=== PATIENT | male | born 1960 | race Two or more races ===

== ENCOUNTER → 2022-04-20 | Outpatient (CLI) | payer MEDICAID ==
[2022-04-20 09:52] LABS: Basophils # (auto) 0 10 ^3/uL (0-0.2); Basophils % (auto) 0.2 % (0.0-2.0); Eosinophils # (auto) 0.2 10 ^3/uL (0-0.8); Eosinophils % (auto) 2.5 % (0.0-7.0); Hematocrit 49.5 % (41.0-53.0); Hemoglobin 16.2 g/dL (13.5-17.5); Lymphocytes # (auto) 2.9 10 ^3/uL (0.4-5.4); Lymphocytes % (auto) 33.9 % (10.0-50.0); Mean Corpuscular Hemoglobin 28.3 pg (28.0-32.0); Mean Corpuscular Hgb Conc. 32.7 g/dL (32.0-36.0); Mean Corpuscular Volume 86.5 fL (80.0-100.0); Monocytes # (auto) 0.6 10 ^3/uL (0-1.3); Monocytes % (auto) 7.6 % (0.0-12.0); Neutrophils # (auto) 4.7 10 ^3/uL (1.6-8.6); Neutrophils % (auto) 55.8 % (37.0-80.0); Nucleated Red Blood Cells % 0.1 %; Red Blood Cells 5.72 10^6/uL (4.5-5.90); Red Cell Distribution Width 13.4 % (11.8-14.3); White Blood Cell 8.4 10^3/uL (4.4-10.8)
[2022-04-20 10:10] LABS: Urine Bacteria NONE SEEN /hpf (None Seen); Urine Blood Negative /uL (Negative); Urine Mucus FEW (None Seen); Urine Specific Gravity 1.018 (1.001-1.035); Urine WBC 1 /hpf (0 - 3)
[2022-04-20 10:44] LABS: Potassium 4.6 mmol/L (3.5-5.1)
[2022-04-20 10:50] LABS: Albumin 3.9 g/dL (3.4-5.0); BUN/Creatinine Ratio 12.2; Bilirubin, Total 0.7 mg/dL (0.2-1.0); Calcium 9.4 mg/dL (8.5-10.1); Total Protein 7.7 g/dL (6.4-8.2)
== END | disposition home or self-care (01) ==
LOC: LAB 09:17
PROVIDERS: ATTEND Internal Medicine
DX: Z00.00 Encounter for general adult medical examination without abnormal findings (principal); Z12.11 Encounter for screening for malignant neoplasm of colon; E11.9 Type 2 diabetes mellitus without complications; I10 Essential (primary) hypertension
CPT/HCPCS: 36415; 80053; 80061; 81001; 82043; 82550; 83036; 84153; 85025; 85652

== ENCOUNTER → 2022-07-27 | Outpatient (CLI) | payer MEDICAID ==
[2022-07-27 13:36] LABS: Alanine Aminotransferase 23 U/L (16-61); Albumin 3.8 g/dL (3.4-5.0); Bilirubin, Direct < 0.1 mg/dL (0-0.2)
[2022-07-27 13:39] LABS: Alkaline Phosphatase 98 U/L (45-117); Aspartate Aminotransferase 14 U/L (15-37); Bilirubin, Total 0.5 mg/dL (0.2-1.0); Total Protein 8.1 g/dL (6.4-8.2)
== END | disposition home or self-care (01) ==
LOC: LAB 12:36
PROVIDERS: ATTEND Internal Medicine
DX: E78.5 Hyperlipidemia, unspecified (principal)
CPT/HCPCS: 36415; 80076

== ENCOUNTER → 2022-12-08 | Outpatient (CLI) | payer MEDICAID ==
[2022-12-08 11:31] LABS: Albumin 4.1 g/dL (3.4-5.0); Potassium 4.7 mmol/L (3.5-5.1)
[2022-12-08 11:38] LABS: BUN/Creatinine Ratio 16.3 (10.0-20.0); Calcium 9.7 mg/dL (8.5-10.1); Phosphorus 4.2 mg/dL (2.5-4.90)
== END | disposition home or self-care (01) ==
LOC: LAB 10:34
PROVIDERS: ATTEND Internal Medicine
DX: E11.9 Type 2 diabetes mellitus without complications (principal); I10 Essential (primary) hypertension; E78.5 Hyperlipidemia, unspecified
CPT/HCPCS: 36415; 80061; 80069; 83036

== ENCOUNTER → 2022-12-28 | Outpatient (CLI) | payer MEDICAID ==
[2022-12-28 13:22] LABS: Albumin 3.8 g/dL (3.4-5.0); Bilirubin, Direct 0.2 mg/dL (0-0.2)
[2022-12-28 13:25] LABS: Bilirubin, Total 0.7 mg/dL (0.2-1.0); Total Protein 7.7 g/dL (6.4-8.2)
== END | disposition home or self-care (01) ==
LOC: LAB 09:44
PROVIDERS: ATTEND Internal Medicine
DX: E78.5 Hyperlipidemia, unspecified (principal)
CPT/HCPCS: 36415; 80076

== ENCOUNTER 2023-03-05 12:38 | Inpatient (IN) | payer OTHER, MEDICAID ==
[~2023-03-05] VITALS: Ht 162.6 cm; Wt 101.0 kg
[2023-03-05 13:06] LABS: Basophils # (auto) 0 10 ^3/uL (0-0.2); Basophils % (auto) 0.3 % (0.0-2.0); Eosinophils # (auto) 0.1 10 ^3/uL (0-0.8); Eosinophils % (auto) 0.4 % (0.0-7.0); Hemoglobin 17.1 g/dL (13.5-17.5); Lymphocytes # (auto) 1.6 10 ^3/uL (0.4-5.4); Lymphocytes % (auto) 12.3 % (10.0-50.0); Mean Corpuscular Hemoglobin 28.9 pg (28.0-32.0); Mean Corpuscular Hgb Conc. 32.9 g/dL (32.0-36.0); Mean Corpuscular Volume 87.9 fL (80.0-100.0); Monocytes # (auto) 0.9 10 ^3/uL (0-1.3); Monocytes % (auto) 6.7 % (0.0-12.0); Neutrophils # (auto) 10.3 10 ^3/uL (1.6-8.6); Neutrophils % (auto) 80.3 % (37.0-80.0); Nucleated Red Blood Cells % 0.1 %; Red Blood Cells 5.92 10^6/uL (4.5-5.90); White Blood Cell 12.9 10^3/uL (4.4-10.8)
[2023-03-05 13:30] LABS: Albumin 4.1 g/dL (3.4-5.0); Calcium 9.7 mg/dL (8.5-10.1)
[2023-03-05 13:33] LABS: BUN/Creatinine Ratio 8.4 (10.0-20.0); Bilirubin, Total 0.7 mg/dL (0.2-1.0); Total Protein 7.8 g/dL (6.4-8.2)
[2023-03-05 14:26] LABS: Urine Bacteria FEW /hpf (None Seen); Urine Blood 2+ /uL (Negative); Urine Hyaline Cast FEW /lpf (0 - 2); Urine Mucus FEW (None Seen); Urine Specific Gravity 1.023 (1.001-1.035); Urine WBC 10 /hpf (0 - 3)
[2023-03-05] MEDS ORDERED: MORPHINE SULFATE INJ 2 MG/ml SYRG IV PRN (18:30)
[2023-03-05] MEDS ORDERED: IPRATROPIUM BROM 0.5 MG/2.5ML INH SOL NEB PRN (18:30)
[2023-03-05] MEDS ORDERED: ACETAMINOPHEN 325 MG TAB PO PRN (18:30)
[2023-03-05] MEDS ORDERED: DEXTROSE (50%) 50ML SYRG IV PRN (18:30)
[2023-03-05] MEDS ORDERED: ALBUTEROL SULF 2.5 MG/0.5ML(0.5%) NEB SOLN NEB PRN (18:30)
[2023-03-05] MEDS ORDERED: NITROGLYCERIN 0.4 MG SL TAB SL PRN (18:30)
[2023-03-05] MEDS: cefTRIAXone 1GM/50ML D5W 50 ML IV SCH (19:36)
[2023-03-05] MEDS: SODIUM CHLORIDE 0.9% 1,000 ML IV SCH (19:40)
[2023-03-05 21:23] VITALS: BP 100/73; PULSE 83; RESP 20; O2SAT 94
[2023-03-05] MEDS ORDERED: InsuLIN REG 1unit/0.01ml Soln (100units/ml) SC SCH (22:00)
[2023-03-05] MEDS ORDERED: ATORVASTATIN 20 MG TAB PO SCH (22:00)
[2023-03-05] MEDS: ACCU-CHEK COMFORT CURVE STRIP VI SCH (22:29)
[2023-03-06] MEDS: SODIUM CHLORIDE 0.9% 1,000 ML IV SCH ×3 (01:10→14:30)
[2023-03-06 05:04] LABS: Basophils # (auto) 0 10 ^3/uL (0-0.2); Basophils % (auto) 0.3 % (0.0-2.0); Eosinophils # (auto) 0.2 10 ^3/uL (0-0.8); Eosinophils % (auto) 1.7 % (0.0-7.0); Hematocrit 50.5 % (41.0-53.0); Hemoglobin 17.2 g/dL (13.5-17.5); Lymphocytes # (auto) 2.4 10 ^3/uL (0.4-5.4); Lymphocytes % (auto) 22.2 % (10.0-50.0); Mean Corpuscular Hemoglobin 29.7 pg (28.0-32.0); Mean Corpuscular Volume 87.3 fL (80.0-100.0); Monocytes # (auto) 0.8 10 ^3/uL (0-1.3); Monocytes % (auto) 7.8 % (0.0-12.0); Neutrophils # (auto) 7.2 10 ^3/uL (1.6-8.6); Nucleated Red Blood Cells % 0.1 %; Red Blood Cells 5.79 10^6/uL (4.5-5.90); Red Cell Distribution Width 14.2 % (11.8-14.3); White Blood Cell 10.6 10^3/uL (4.4-10.8)
[2023-03-06 05:23] LABS: Albumin 3.9 g/dL (3.4-5.0); Calcium 9.7 mg/dL (8.5-10.1); Potassium 3.8 mmol/L (3.5-5.1)
[2023-03-06 05:30] LABS: BUN/Creatinine Ratio 19.6 (10.0-20.0); Bilirubin, Total 0.6 mg/dL (0.2-1.0)
[2023-03-06] MEDS: InsuLIN REG 1unit/0.01ml Soln (100units/ml) SC SCH ×3 (08:11→16:57)
[2023-03-06] MEDS: ACCU-CHEK COMFORT CURVE STRIP VI SCH ×3 (08:11→16:57)
[2023-03-06 08:35] VITALS: O2SAT 98
[2023-03-06] MEDS: cefTRIAXone 1GM/50ML D5W 50 ML IV SCH (09:08)
[2023-03-06 09:45] VITALS: PULSE 80; RESP 16; O2SAT 98
[2023-03-06] MEDS ORDERED: ASPirin-EC 81 mg tab PO SCH (10:00)
[2023-03-06] MEDS ORDERED: PANTOPRAZOLE 40 MG/10 ML VIAL INJ IV SCH (10:00)
[2023-03-06 12:00] VITALS: TEMP 98.1
[2023-03-06 17:01] VITALS: BP 113/72; PULSE 74; RESP 19; O2SAT 93
== END 2023-03-06 18:01 | disposition home or self-care (01) | DRG 311 ==
LOC: ER 12:38 → TELE 18:28
PROVIDERS: ADMIT Nurse Practitioner Family; ATTEND Student in an Organized Health Care Education/Training Program
DX: I24.9 Acute ischemic heart disease, unspecified (principal); N17.0 Acute kidney failure with tubular necrosis; N30.00 Acute cystitis without hematuria; E11.65 Type 2 diabetes mellitus with hyperglycemia; I10 Essential (primary) hypertension; E78.5 Hyperlipidemia, unspecified; E66.01 Morbid (severe) obesity due to excess calories; Z82.3 Family history of stroke; Z68.38 Body mass index [BMI] 38.0-38.9, adult
CPT/HCPCS: 36415; 71045; 71275; 80053; 80061; 81001; 82962; 83880; 84443; 84484; 85025; 85379; 87086; 93005; 93306; C9113; G0378; J0696; J1815

== ENCOUNTER → 2023-03-15 | Outpatient (CLI) | payer OTHER, MEDICAID ==
[2023-03-15 09:40] LABS: Urine Bacteria NONE SEEN /hpf (None Seen); Urine Blood Negative /uL (Negative); Urine Clarity Clear (Clear); Urine Color Colorless (Yellow); Urine Protein, UAD Negative (Negative); Urine Specific Gravity 1.028 (1.001-1.035); Urine Urobilinogen Normal (Negative); Urine WBC <1 /hpf (0 - 3); Urine pH 5.5 (5.0-8.0)
[2023-03-15 10:09] LABS: Potassium 4.5 mmol/L (3.5-5.1)
[2023-03-15 10:15] LABS: BUN/Creatinine Ratio 15.5 (10.0-20.0); Calcium 9.1 mg/dL (8.5-10.1)
== END | disposition home or self-care (01) ==
LOC: LAB 09:09
PROVIDERS: ATTEND Internal Medicine
DX: E11.9 Type 2 diabetes mellitus without complications (principal); N39.0 Urinary tract infection, site not specified
CPT/HCPCS: 36415; 80048; 81001; 87086

== ENCOUNTER → 2023-06-06 | Outpatient (CLI) | payer OTHER ==
[2023-06-06 10:37] LABS: Creatinine, Urine 81.35 mg/dL (30.0-125.0)
[2023-06-06 10:40] LABS: Alanine Aminotransferase 13 U/L (7-40); Alkaline Phosphatase 88 U/L (46-116); Anion Gap 7 (5-15); BUN/Creatinine Ratio 11.2 (10.0-20.0); Blood Urea Nitrogen 12 mg/dL (9-23); Calcium 9.7 mg/dL (8.5-10.1); Carbon Dioxide 30 mmol/L (20-30); Chloride 102 mmol/L (98-107); Glucose 170 mg/dL (74-106); Potassium 4.7 mmol/L (3.5-5.1); Sodium 139 mmol/L (136-145)
[2023-06-06 10:41] LABS: Albumin 4.8 g/dL (3.2-4.8); Aspartate Aminotransferase 10 U/L (13-40)
[2023-06-06 10:42] LABS: Bilirubin, Total 0.8 mg/dL (0.2-1.0); Phosphorus 4.4 mg/dL (2.4-5.1); Total Protein 7.8 g/dL (5.7-8.2)
== END | disposition home or self-care (01) ==
LOC: LAB 09:02
PROVIDERS: ATTEND Internal Medicine
DX: I12.9 Hypertensive chronic kidney disease with stage 1 through stage 4 chronic kidney disease, or unspecified chronic kidney disease (principal); E11.22 Type 2 diabetes mellitus with diabetic chronic kidney disease; N18.1 Chronic kidney disease, stage 1
CPT/HCPCS: 36415; 80053; 82043; 82570; 83036; 84100; 84153

== ENCOUNTER → 2023-06-20 | Outpatient (CLI) | payer OTHER, MEDICAID ==
[~2023-06-20] VITALS: Ht 177.8 cm; Wt 103.9 kg
[~2023-06-20] MED LIST: ADENOSINE 87 MG in GIVE UN-DILUTED 0 ML IV STA
== END | disposition home or self-care (01) ==
LOC: XYW 08:47
PROVIDERS: ATTEND Internal Medicine
DX: I12.9 Hypertensive chronic kidney disease with stage 1 through stage 4 chronic kidney disease, or unspecified chronic kidney disease (principal); E11.22 Type 2 diabetes mellitus with diabetic chronic kidney disease; N18.1 Chronic kidney disease, stage 1; R07.9 Chest pain, unspecified; Z87.891 Personal history of nicotine dependence
CPT/HCPCS: 78452; 93017; A9500; J0153

== ENCOUNTER 2023-07-27 07:26 | Emergency (ER) | payer OTHER ==
[~2023-07-27] VITALS: Ht 177.8 cm; Wt 107.8 kg
[2023-07-27 08:27] VITALS: BP 152/91; PULSE 70; RESP 16; TEMP 97.7; O2SAT 96
[2023-07-27] MEDS ORDERED: PROM1SOL4 PO (08:28)
[2023-07-27] MEDS ORDERED: LEVO500T91 PO (08:28)
== END 2023-07-27 08:34 | disposition home or self-care (01) ==
LOC: ER 07:26
DX: J20.9 Acute bronchitis, unspecified (principal); I10 Essential (primary) hypertension; E11.9 Type 2 diabetes mellitus without complications; E78.5 Hyperlipidemia, unspecified; Z98.890 Other specified postprocedural states
CPT/HCPCS: 71046

== ENCOUNTER → 2023-09-14 | Outpatient (CLI) | payer OTHER ==
[~2023-09-14] MED LIST changes: -ADENOSINE 87 MG in GIVE UN-DILUTED 0 ML IV STA; +LEVO500T91 PO; +PROM1SOL4 PO
[2023-09-14 10:07] LABS: CRP High Sensitivity 0.19 mg/dL (<1.0)
[2023-09-14 10:23] LABS: Erythrocyte Sedimentation Rate 7 mm/hr (0-20)
[2023-09-14 10:38] LABS: Uric Acid 6.2 mg/dL (3.7-9.2)
== END | disposition home or self-care (01) ==
LOC: LAB 09:03
PROVIDERS: ATTEND Internal Medicine
DX: E11.9 Type 2 diabetes mellitus without complications (principal)
CPT/HCPCS: 36415; 80061; 83036; 84550; 85652; 86141

== ENCOUNTER → 2024-01-12 | Outpatient (CLI) | payer OTHER ==
[2024-01-12 09:15] LABS: Triglycerides 131 mg/dL (< 150)
[2024-01-12 09:16] LABS: Cholesterol 127 mg/dL (< 200); LDL Cholesterol 73 mg/dL (< 100)
[2024-01-12 09:17] LABS: HDL Cholesterol 33 mg/dL (40-59)
== END | disposition home or self-care (01) ==
LOC: LAB 08:27
PROVIDERS: ATTEND Internal Medicine
DX: E11.9 Type 2 diabetes mellitus without complications (principal)
CPT/HCPCS: 36415; 80061; 83036

== ENCOUNTER → 2024-03-21 | Outpatient (CLI) | payer OTHER ==
[~2024-03-21] VITALS: Ht 177.8 cm; Wt 103.4 kg
[2024-03-21] MEDS: REGADENOSON 0.4 MG/5 ML SYRG IV ONE ×2 (09:46→09:47)
== END | disposition home or self-care (01) ==
LOC: XYW 08:23
PROVIDERS: ATTEND Internal Medicine
DX: I10 Essential (primary) hypertension (principal); E11.65 Type 2 diabetes mellitus with hyperglycemia
CPT/HCPCS: 78452; 93017; A9500; J2785

== ENCOUNTER → 2024-05-17 | Outpatient (CLI) | payer OTHER ==
[2024-05-17 10:49] LABS: Anion Gap 7 (5-15); Carbon Dioxide 29 mmol/L (20-31); Chloride 105 mmol/L (98-107); Potassium 4.5 mmol/L (3.5-5.1); Sodium 141 mmol/L (136-145)
[2024-05-17 10:50] LABS: Calcium 10.3 mg/dL (8.7-10.4)
[2024-05-17 10:55] LABS: BUN/Creatinine Ratio 10.7 (10.0-20.0); Blood Urea Nitrogen 12 mg/dL (9-23); Glucose 174 mg/dL (74-106)
[2024-05-17 13:06] LABS: Creatinine, Urine 122.56 mg/dL (30.0-125.0)
== END | disposition home or self-care (01) ==
LOC: LAB 09:11
PROVIDERS: ATTEND Internal Medicine
DX: Z00.00 Encounter for general adult medical examination without abnormal findings (principal); E11.9 Type 2 diabetes mellitus without complications; E78.5 Hyperlipidemia, unspecified
CPT/HCPCS: 36415; 80048; 82043; 82570; 83036; 84153

== ENCOUNTER → 2024-08-22 | Outpatient (CLI) | payer OTHER ==
[2024-08-22 08:12] LABS: Basophils # (auto) 0 10 ^3/uL (0-0.2); Basophils % (auto) 0.3 % (0.0-2.0); Eosinophils # (auto) 0.2 10 ^3/uL (0-0.8); Eosinophils % (auto) 2.7 % (0.0-7.0); Hematocrit 51.7 % (41.0-53.0); Hemoglobin 17.4 g/dL (13.5-17.5); Lymphocytes # (auto) 2.7 10 ^3/uL (0.4-5.4); Lymphocytes % (auto) 32.1 % (10.0-50.0); Mean Corpuscular Hemoglobin 29.5 pg (28.0-32.0); Mean Corpuscular Hgb Conc. 33.7 g/dL (32.0-36.0); Mean Corpuscular Volume 87.5 fL (80.0-100.0); Monocytes # (auto) 0.7 10 ^3/uL (0-1.3); Monocytes % (auto) 8.2 % (0.0-12.0); Neutrophils # (auto) 4.8 10 ^3/uL (1.6-8.6); Neutrophils % (auto) 56.7 % (37.0-80.0); Nucleated Red Blood Cells % 0.1 %; Platelet Count (auto) 234 10^3/uL (140-450); Red Cell Distribution Width 14.1 % (11.8-14.3); White Blood Cell 8.5 10^3/uL (4.4-10.8)
[2024-08-22 08:37] LABS: Alanine Aminotransferase 20 U/L (7-40); Alkaline Phosphatase 104 U/L (46-116); Anion Gap 4 (5-15); BUN/Creatinine Ratio 9.9 (10.0-20.0); Blood Urea Nitrogen 12 mg/dL (9-23); Calcium 10.2 mg/dL (8.7-10.4); Carbon Dioxide 31 mmol/L (20-31); Chloride 104 mmol/L (98-107); LDL Cholesterol 76 mg/dL (< 100); Potassium 4.7 mmol/L (3.5-5.1); Sodium 139 mmol/L (136-145)
[2024-08-22 08:38] LABS: Albumin 4.8 g/dL (3.2-4.8); Bilirubin, Total 0.9 mg/dL (0.2-1.0); Cholesterol 139 mg/dL (< 200); Total Protein 7.8 g/dL (5.7-8.2)
[2024-08-22 08:39] LABS: Aspartate Aminotransferase 13 U/L (13-40); Glucose 179 mg/dL (74-106); HDL Cholesterol 34 mg/dL (40-59); Triglycerides 211 mg/dL (< 150)
[2024-08-22 10:48] LABS: Free T3 3.24 pg/mL (2.3-4.2)
[2024-08-22 10:49] LABS: Free T4 (Free Thyroxine) 1.12 ng/dL (0.89-1.76)
== END | disposition home or self-care (01) ==
LOC: LAB 07:27
PROVIDERS: ATTEND Internal Medicine
DX: E11.9 Type 2 diabetes mellitus without complications (principal); E78.5 Hyperlipidemia, unspecified
CPT/HCPCS: 36415; 80053; 80061; 84439; 84443; 84481; 85025

== ENCOUNTER 2025-02-20 06:23 | Outpatient (CLI) | payer OTHER | END 2025-02-20 17:00 | disposition home or self-care (01) | LOC: LAB 06:23 | PROVIDERS: ATTEND Internal Medicine | DX: N39.0 Urinary tract infection, site not specified (principal) | CPT/HCPCS: 87086 ==

== ENCOUNTER → 2025-03-21 | Outpatient (CLI) | payer OTHER | END | disposition home or self-care (01) | LOC: LAB 09:19 | PROVIDERS: ATTEND Internal Medicine | DX: E11.9 Type 2 diabetes mellitus without complications (principal); N39.0 Urinary tract infection, site not specified | CPT/HCPCS: 36415; 85652; 86141; 86431 ==

== ENCOUNTER 2025-03-26 07:50 | Outpatient (CLI) | payer OTHER, MEDICAID | END 2025-03-26 17:00 | disposition home or self-care (01) | LOC: LAB 07:50 | PROVIDERS: ATTEND Internal Medicine | DX: M79.641 Pain in right hand (principal) | CPT/HCPCS: 36415; 84550; 86160; 86225; 86235; 86376; 86431; 86812 ==

== ENCOUNTER 2025-06-20 06:54 | Outpatient (CLI) | payer OTHER | END 2025-06-23 17:00 | disposition home or self-care (01) | LOC: LAB 06:54 | PROVIDERS: ATTEND Internal Medicine | DX: E11.9 Type 2 diabetes mellitus without complications (principal); Z12.11 Encounter for screening for malignant neoplasm of colon | CPT/HCPCS: 36415; 83036; 84153 ==